=== PATIENT | male | born 1960 | race African-American/Black ===

== ENCOUNTER 2022-11-20 21:01 | Emergency (ER) | payer BC ==
[2022-11-20] MEDS ORDERED: Ketorolac Tromethamine 30 MG/ML VIAL ONE (22:02)
== END 2022-11-20 22:26 | disposition home or self-care (01) ==
LOC: ERS 21:01
DX: S76.911A Strain of unspecified muscles, fascia and tendons at thigh level, right thigh, initial encounter (principal); I10 Essential (primary) hypertension; E78.5 Hyperlipidemia, unspecified; Y93.F9 Activity, other caregiving
CPT/HCPCS: 96372; 99283; J1885